=== PATIENT | male | born 1965 | race Caucasian/White ===

== ENCOUNTER 2025-04-28 06:23 | Day surgery (SDC) | payer OTHER, SELFPAY ==
[2025-04-28 07:36] LABS: Glucose - Point of Care 105 mg/dl (70-99)
== END 2025-04-28 10:58 | disposition home or self-care (01) ==
LOC: GI 06:23
PROVIDERS: ATTENDING PHYSICIAN Internal Medicine Gastroenterology
DX: Z12.11 Encounter for screening for malignant neoplasm of colon (principal); Z86.0100 Personal history of colon polyps, unspecified; K64.8 Other hemorrhoids; K57.30 Diverticulosis of large intestine without perforation or abscess without bleeding; K62.1 Rectal polyp; D12.3 Benign neoplasm of transverse colon
CPT/HCPCS: 45385; 45380; 82962; 88305